=== PATIENT | male | born 1950 | race Caucasian/White ===

== ENCOUNTER → 2023-12-15 11:22 | Outpatient (REF) | payer OTHER, SELFPAY | LOC: HWRAD 11:22 | PROVIDERS: ATTENDING PHYSICIAN Internal Medicine | DX: I82.431 Acute embolism and thrombosis of right popliteal vein (principal) | CPT/HCPCS: 93971 ==

== ENCOUNTER → 2024-06-11 09:16 | Outpatient (REF) | payer MEDICARE, OTHER, SELFPAY ==
[2024-06-11 12:42] LABS: Urine Albumin Negative (Neg - Trace); Urine Bilirubin Negative (Negative); Urine Character Clear (Clear); Urine Color Yellow; Urine Glucose 3+ (Negative); Urine Ketone Negative (Negative); Urine Leukocyte Negative (Negative); Urine Nitrite Negative (Negative); Urine Occult Blood Negative (Negative); Urine Urobilinogen Negative (Neg - 1+)
[2024-06-11 13:22] LABS: Total Cholesterol 177 mg/dl (50-199); Triglyceride 40 mg/dl (10-149); Uric Acid 3.3 mg/dl (3.5-8.5); Very Low Density Lipoprotein 8 mg/dl (0-30)
[2024-06-11 13:38] LABS: HDL Cholesterol 121 mg/dl; LDL Cholesterol, Calculated 48 mg/dl
[2024-06-11 13:52] LABS: TSH 1.21 uIU/ml (0.47-4.68)
[2024-06-11 15:11] LABS: PSA, Total - Screen 1.02 ng/ml (0.0-4.0)
== END ==
LOC: HWLAB 09:16
PROVIDERS: ATTENDING PHYSICIAN Internal Medicine
DX: I10 Essential (primary) hypertension (principal); E78.2 Mixed hyperlipidemia; M10.9 Gout, unspecified; I42.9 Cardiomyopathy, unspecified; R73.01 Impaired fasting glucose; Z12.5 Encounter for screening for malignant neoplasm of prostate
CPT/HCPCS: 36415; 80061; 81003; 84443; 84550; G0103

== ENCOUNTER → 2024-06-12 07:51 | Outpatient (REF) | payer MEDICARE, OTHER, SELFPAY ==
[2024-06-12 09:39] LABS: % Basophils 0.9 % (0-2); % Eosinophils 2.4 % (0-6); % Immature Granulocytes 0.2 % (0-0.5); % Lymphocytes 21.8 % (20.5-51.1); % Monocytes 10.9 % (1.7-9.3); % Neutrophils 63.8 % (42.2-75.2); Absolute Eosinophils 0.1 10^3/uL (0-0.7); Absolute Monocytes 0.5 10^3/uL (0.1-0.6); Absolute Neutrophils 2.9 10^3/uL (1.4-6.5); Hemoglobin 15.6 g/dL (13.0-18.0); Mean Corp Hgb Conc. 35.5 g/dL (33.0-37.0); Mean Corpuscular Hgb 33.8 pg (27.0-31.0); Mean Corpuscular Volume 95.2 fL (80.0-94.0); Mean Platelet Volume 10.5 fL (7.4-10.4); Nucleated Red Blood Cells % 0 % (-); Platelet Count 115 10^3/uL (130-400); Red Blood Cell Count 4.62 10^6/uL (4.70-6.10); Red Cell Dist. Width 13.9 % (11.5-14.5); White Blood Cell Count 4.6 10^3/uL (4.8-10.8)
[2024-06-12 10:56] LABS: ALT (SGPT) 26 U/L (0-50); AST (SGOT) 38 U/L (17-59); Albumin 4.1 g/dl (3.5-5.0); Alkaline Phosphatase 89 U/L (38-126); Blood Urea Nitrogen 20 mg/dl (9-20); Calcium 9.1 mg/dl (8.4-10.2); Carbon Dioxide 22 mmol/L (22-30); Chloride 104 mmol/L (98-107); Glucose 87 mg/dl (70-99); Potassium 4.8 mmol/L (3.5-5.1); Sodium 139 mmol/L (135-145); Total Protein 6.4 g/dl (6.3-8.2); eGFR > 60.00
[2024-06-14 01:24] LABS: PSA Total 0.8 ng/mL (0.0-4.0)
== END ==
LOC: REG 07:51
PROVIDERS: ATTENDING PHYSICIAN Internal Medicine
DX: I10 Essential (primary) hypertension (principal); E78.2 Mixed hyperlipidemia; R73.01 Impaired fasting glucose; Z12.5 Encounter for screening for malignant neoplasm of prostate
CPT/HCPCS: 36415; 80053; 83036; 84153; 84154; 85025

== ENCOUNTER 2024-06-18 20:12 | Inpatient (IN) | payer MEDICARE, OTHER, SELFPAY ==
[2024-06-18] VITALS (8 sets, daily range): BP systolic 99–142; BP diastolic 66–92; BMI 27.7; BMI 27.4
[2024-06-18 17:39] LABS: % Basophils 0.5 % (0-2); % Eosinophils 0.8 % (0-6); % Immature Granulocytes 0.3 % (0-0.5); % Lymphocytes 18.9 % (20.5-51.1); % Monocytes 11.5 % (1.7-9.3); Absolute Eosinophils 0.1 10^3/uL (0-0.7); Absolute Lymphocytes 1.2 10^3/uL (1.2-3.4); Absolute Monocytes 0.8 10^3/uL (0.1-0.6); Absolute Neutrophils 4.4 10^3/uL (1.4-6.5); Hemoglobin 14.3 g/dL (13.0-18.0); Mean Corp Hgb Conc. 34.9 g/dL (33.0-37.0); Mean Corpuscular Hgb 32.9 pg (27.0-31.0); Mean Corpuscular Volume 94.5 fL (80.0-94.0); Mean Platelet Volume 9.5 fL (7.4-10.4); Nucleated Red Blood Cells % 0 % (-); Platelet Count 151 10^3/uL (130-400); Red Blood Cell Count 4.34 10^6/uL (4.70-6.10); Red Cell Dist. Width 13.8 % (11.5-14.5); White Blood Cell Count 6.5 10^3/uL (4.8-10.8)
[2024-06-18 17:42] LABS: ALT (SGPT) 21 U/L (0-50); AST (SGOT) 30 U/L (17-59); Alkaline Phosphatase 81 U/L (38-126); Blood Urea Nitrogen 25 mg/dl (9-20); Calcium 9.3 mg/dl (8.4-10.2); Carbon Dioxide 23 mmol/L (22-30); Chloride 103 mmol/L (98-107); Glucose 106 mg/dl (70-99); Potassium 4.5 mmol/L (3.5-5.1); Sodium 139 mmol/L (135-145); Total Bilirubin 0.9 mg/dl (0.2-1.3); Total Protein 6.3 g/dl (6.3-8.2); eGFR > 60.00
[2024-06-18 18:11] LABS: Lactic Acid 2.2 mmol/L (0.7-2.0)
--- NOTE | 2024-06-18 19:34 | ED.GENMED ---
History of Present Illness
General
Chief Complaint: Skin Problem
Source: patient
Exam Limitations: none
Time Seen by Provider: 06/18/24 18:58
History of Present Illness
History of Present Illness:
This is a 73 year old male that comes in with c/o left arm swelling. States that yesterday morning he noticed that his left arm was slightly swollen. Patient went to Urgent care and they put him on Antibiotics as he had on old wound of the wrist.
States that he has taken them over the past 28 hours. Today the left arm is more swollen so they thought they better come in . states that he has a history of DVT in the right leg before. Denies any fever, chills, chest pain, SOB, abd pain,
nausea, vomiting, diarrhea, headache, dizziness urinary burning
Past History
Past History
ED Past Medical History: HTN, Hypercholesterolemia and Other (Gout, DVT)
ED Past Surgical History: Cardiac (Pacemaker), Orthopedic (Jaw, Left foot surgery X 2, right knee surgery, Bilateral shoulder surgery, ) and Other (Hernia X 2)
Social History
Tobacco: Non-smoker
Alcohol: Daily (Wine 2 glasses)
Personal:
Living: with family
Employment: Employed
Review of Systems
Review of Systems
All Other Systems: ROS reviewed and negative except as documented in HPI and ROS
Constitutional: Reports no symptoms; Denies fever or chills
EENT: Reports no symptoms
Respiratory: Reports no symptoms; Denies cough or trouble breathing
Cardiac: Reports no symptoms; Denies chest pain
ABD/GI: Reports no symptoms; Denies abdominal pain, nausea, vomiting or diarrhea
: Reports no symptoms; Denies dysuria, frequency or urgency
Musculoskeletal: Reports no symptoms
Skin: Reports no symptoms
Neurological: Reports no symptoms; Denies dizzy or headache
Psychiatric: Reports no symptoms
Phy Exam
General Physical Exam
General Presentation: well appearing and no apparent distress
General age: appears stated age
General Skin: warm and dry
General Habitus: elderly
General Mental: alert
General Hydration: appears well hydrated
ENT Exam
ENT Exam: TM's normal, pharynx normal and neck supple
Eye Exam
Eye Exam: EOMI
Cardiovascular Exam
Cardiovascular Exam: regular rate/rhythm and normal peripheral pulses
Pulmonary Exam
Pulmonary Exam: lungs clear, no respiratory distress, no rales, chest non tender, no crackles, no rhonchi, no wheezing and no cough
Gastrointestinal Exam
Gastrointestinal Exam: normal bowel sounds, non tender, soft, no organomegaly, no pulsatile mass and non distended
Musculoskeletal Exam
Musculoskeletal Exam: full ROM, edema (Slight Lower leg edema +1 pitting) and other (Left arm swelling noted, nonpitting. )
Skin Exam
Skin Exam: normal color, warm/dry, no petechia and other (Contusion noted on the right lower chin and into the neck, Small healed wound on the left wrist)
Psychiatric Exam
Psychiatric Exam: normal mood/affect
Course
Orders/Labs/Results
Orders:
Orders
06/18/24 17:14
US Periph Venous UPPER Ext LT Urgent
Comment:
Reason For Exam: left arm swelling, hx of DVT's
06/18/24 17:15
Electrocardiogram (*1) Urgent
Reason for Study: Tachycardia
EKG- Treatment ONCE
06/18/24 17:21
Complete Blood Count/With Diff Urgent
Comprehensive Metabolic Panel Urgent
Lactic Acid Urgent
06/18/24 19:35
Heparin 8,500 units IV NOW STA
Nursing to Place Non Medication Order As Directed
Physician Order: PTT 6 hours after initial start of Heparin infusion
Above order entered?: Yes
06/18/24 19:42
PTT Urgent
Prothrombin Time Urgent
06/18/24 19:43
0.9% Sodium Chloride 500 ml [Nss] 500 ml IV BOLUS
06/18/24 19:45
Heparin 32673 Units/250 ml 25,000 units in 250 ml IV PER PROTOCOL
Weight to be used for heparin protocol in kilograms (kg):: 105.7
Protocol:: DVT/PE
PTT Goal Range to be used:: PTT 73 to 111 seconds
Order type:: Initial
INITIAL Infusion Dose (UNITS/KG/hr) & then follow protocol:: 18 units/kg/hr
Infusion Dose in UNITS/hr & then follow protocol (UNITS/hr):: 1,900
INFUSION RATE in mL/hr & then follow protocol (mL/hr):: 19
For DVT/PE algorithm, re-bolus for low PTT?: Yes
PTT less than or equal to 64 seconds:: Re-bolus 80 units/kg (max 10,000units). Increase by 400 units/hr
(+ 4mL/hr)
PTT 64.1 to 72.9 seconds:: Re-bolus 40 units/kg (max 5,000 units). Increase by 200 units/hr
(+ 2mL/hr)
PTT 73 to 111 seconds:: Target Range. No change in rate.
PTT 111.1 to 130.9 seconds:: Decrease rate by 200 units/hr (- 2 mL/hr)
PTT 131 to 199.9 seconds:: HOLD for 1 hr. Then decrease by 300 units/hr (- 3mL/hr)
PTT greater than or equal to 200 seconds:: HOLD for 2 hrs & Notify Provider. Then decrease by 400 units/hr
(- 4mL/hr)
Lab follow-up:: Each change, PTT q6h until 2 consecutive are therapeutic. Then
PTT daily.
06/18/24 19:48
Heparin 8,500 units IV PRN PRN
06/18/24 19:49
Heparin 4,200 units IV PRN PRN
06/18/24 20:02
Admit/Transfer Patient As Directed
Co-Sign Provider:
Level of Care: Inpatient admission
Assign to:: Telemetry
Physician / Group: Heriberto
Diagnosis: LUE DVT
Reason for Telemetry: Arrhythmia
Date to Stop Telemetry: 06/21/24
Time to Stop Telemetry: 11:00
Reason for Hospitalization: LUE DVT
Expected length of stay greater than two midnights?: Yes
ELOS- Estimated Length of Stay in days: 3
I certify the patient meets the requirements for IP care: Yes
06/18/24 20:03
PRN Pain Medication Management As Directed
May give lesser potent ordered pain med per pt: Yes
preference::
Protocol:: Medication orders for pain may be administered in a
manner that supports deferring to patient preference
when the pt is:
- Requesting an ordered lesser potent pain medication.
Least to most potent pain medications are defined
as: acetaminophen < NSAID < tramadol < opioids
(morphine, oxycodone, hydromorphone).
- Requesting a lesser dose of the same medication IF
ORDERED.
- Requesting a less intrusive route of administration
if both routes are prescribed by the provider (PO <
IV).
06/18/24 22:00
Allopurinol [Zyloprim] 300 mg PO HS
Primidone [Mysoline] 50 mg PO HS
06/18/24 22:00
Vascular Surgery Consult Routine
Consulting Provider: Cordell Ge
Was physician already notified: Yes
Reason for consult: Extensive LUE DVT
Heparin Protocol- PTT Orders As Directed
PTT per Heparin protocol: -Obtain CBC and baseline PTT - if not already collected.
-Obtain PTT 6 hours from start of infusion. Then, every 6 hours until 2 consecutive
PTT's are therapeutic. Then, PTT Daily.
-With each rate change, obtain PTT every 6 hours until 2 consecutive PTT's are
therapeutic. Then, PTT Daily.
Notify MD As Directed
Notify physician if: PTT is greater than or equal to 200.
06/18/24 23:00
Atorvastatin [Lipitor] 20 mg PO HS
06/19/24 08:00
Carvedilol [Coreg] 12.5 mg PO BID
Dapagliflozin [Farxiga] 10 mg PO DAILY
Famotidine [Pepcid] 20 mg PO BID
Sacubitril 49/Valsartan 51 [Entresto 49 mg/51 mg] 1 tab PO BID
06/20/24 06:00
Complete Blood Count/No Diff Q2D
Comment: notify provider: Platelet count < 130,000 or decrease by 50% from baseline
06/21/24 11:00
DC Protocol for Telemetry ONCE
06/22/24 06:00
Complete Blood Count/No Diff Q2D
Comment: notify provider: Platelet count < 130,000 or decrease by 50% from baseline
06/24/24 06:00
Complete Blood Count/No Diff Q2D
Comment: notify provider: Platelet count < 130,000 or decrease by 50% from baseline
06/26/24 06:00
Complete Blood Count/No Diff Q2D
Comment: notify provider: Platelet count < 130,000 or decrease by 50% from baseline
06/28/24 06:00
Complete Blood Count/No Diff Q2D
Comment: notify provider: Platelet count < 130,000 or decrease by 50% from baseline
06/30/24 06:00
Complete Blood Count/No Diff Q2D
Comment: notify provider: Platelet count < 130,000 or decrease by 50% from baseline
07/02/24 06:00
Complete Blood Count/No Diff Q2D
Comment: notify provider: Platelet count < 130,000 or decrease by 50% from baseline
07/04/24 06:00
Complete Blood Count/No Diff Q2D
Comment: notify provider: Platelet count < 130,000 or decrease by 50% from baseline
Abnormal Lab Results
06/18/24
17:21
RBC 4.34 L 10^6/uL
(4.70-6.10)
MCV 94.5 H fL
(80.0-94.0)
MCH 32.9 H pg
(27.0-31.0)
Absolute Monos (auto) 0.8 H 10^3/uL
(0.1-0.6)
Lymphocytes % 18.9 L %
(20.5-51.1)
Monocytes % 11.5 H %
(1.7-9.3)
BUN 25 H mg/dl
(9-20)
Glucose 106 H mg/dl
(70-99)
Lactic Acid 2.2 H mmol/L
(0.7-2.0)
06/18/24 17:21
06/18/24 17:21
Anemia, Dehydration. Hyperglycemia. Lactic acid elevation
Vital Signs
Initial and Last Documented VS:
Initial Vital Signs
Temp Pulse Resp BP Pulse Ox
97.7 F 103 18 99/66 96
06/18/24 17:11 06/18/24 17:11 06/18/24 17:11 06/18/24 17:11 06/18/24 17:11
Last Documented Vital Signs
Temp Pulse Resp BP Pulse Ox
98.2 F 88 18 142/86 97
06/18/24 23:00 06/18/24 23:00 06/18/24 23:00 06/18/24 23:00 06/18/24 23:00
MDM/Problems Addressed
Differential Diagnosis Includes:
DVT left arm,
MDM/Problems Addressed:
This is a 73 year old male that comes in with c/o left arm swelling. States that this started yesterday and he went to and they place him on antibiotic. Patient states he has take this over the past 28 hours but today the swelling was worse.
States that he has had a DVT in the left in the past.
Will check labs and get US.
Explained to patient that he has significant DVT of the left arm. Will admit patient and place on Heparin. Hospitalist notified.
Chronic conditions affecting care:
Prior DVT
Acute Exacerbation and/or Progression of Chronic Illness:
Prior DVT
*Radiology
Radiology exam reviewed: radiology read reviewed (US-Extensive occlusive Thrombus involving the left jugular, subclavian, axillary, and basilic veins, as described. )
*Pulse Oximetry
Patient hypoxic: no
*EKG
Interpreted by ED Provider?: NA
Rate: EKG- N/A
*Panel Builder Interpretation
Rate: Panel Builder- N/A
*Critical Care Note
Total Time (30-74mins, 75-104mins- exclusive of procedures): Not Applicable
ED Attending Note
-
Portions of this chart may have been created with voice recognition software.� Occasional wrong word or��sound alike� substitutions may have occurred due to the inherent limitations of voice recognition software.
Discharge Plan
Departure
Patient Disposition: Admit
Date of Disposition: 06/18/24
Time of Disposition: 19:47
Admit to: Med/Surg
Presentation/result/management discussed w/ accepting MD/DO: Hospitalist
Patient with high blood pressure during this ER visit?: No
Condition: Good
Covid-19: Not Applicable
Discharge Problem:
Deep vein thrombosis (DVT) of left upper extremity
Interventions
Interventions:
*Risk Screen - Suicide Last Done: 06/18/24 19:29
*General Assessment Last Done: 06/18/24 19:29
*Neglect/Abuse Screening Last Done: 06/18/24 19:29
*ED COVID-19 Vaccine History Last Done: 06/18/24 19:29
*Nursing Disposition Last Done: 06/18/24 21:47
ED-Skin Assessment Last Done: 06/18/24 19:45
Discharge Date and Time
Discharge Date/Time: 06/18/24 21:47
[2024-06-18 19:59] LABS: APTT 30.2 Sec (23.4-35.0); INR 1.06; PT 13.7 Sec (11.4-14.6)
--- NOTE | 2024-06-18 20:06 | HPS.HSE ---
Family Physician
-
Family Physician: Urbano Bell
Chief Complaint
-
LUE swelling
History of Present Illness
Patient is a 73y M with PMH significant for hypertension and CHF who presents to ED complaining of LUE swelling x 2 days. Patient states that he woke yesterday AM with swelling and 'tightness' of the LUE from the shoulder to the fingers. He
went to an Urgent Care for evaluation and was placed on abx for suspected cellulitis. His symptoms did not improve and in fact worsened over the past 24 hours. Patient presented to the ED for further evaluation and treatment.
US done in the ED reveals extensive thrombus in the LUE.
Patient was previously diagnosed with RLE DVT in September 2023. He notes that this occurred following a drive to [place].
He was treated with Eliquis x 3 months and this was then discontinued. Repeat US done in December 2023 showed improvement - but not resolution of - RLE thrombus.
Medical History
Past Medical History
Past Medical History: Reports Other
Additional Past Medical History:
Hypertension
Chronic HFmrEF
RLE DVT (09/2023)
LBBB
Sleep Apnea
Gout
GERD
Past Surgical History: Reports Other
Additional Past Surgical History:
PPM Placement
Bilateral Rotator Cuff Repairs
Left Foot Surgery x 2
Bilateral Inguinal Herniorrhaphies
ORIF Jaw
Right Knee Arthroscopy
Social History
Tobacco: Non-smoker
Alcohol: Daily (2 glasses wine daily)
Drug: None
Personal:
Living: With Family
Family History
Family History: Other (Mother: CAD Father: Head and Neck Cancer)
Allergies / Home Medications
Allergies reflects when Allergies were last updated in [employer].
Home Medications with original date entered in [employer]
Allergy/Medication List:
Allergies
Allergy/AdvReac Type Severity Reaction Status Date / Time
No Known Allergies Allergy Verified 01/22/22 14:58
Home Medications
allopurinol 300 mg tablet 300 mg PO HS 02/28/21
cholecalciferol (vitamin D3) 50 mcg (2,000 unit) tablet 2,000 units PO HS 02/28/21
famotidine 20 mg tablet (Acid [employer] Specialist (famotidine)) 20 mg PO BID 02/28/21
ferrous sulfate 325 mg (65 mg iron) tablet (FeroSul) 325 mg PO HS 02/28/21
acetaminophen 500 mg tablet (Tylenol Extra Strength) 1,000 mg PO Q6HPRN PRN mild pain 06/18/24
carvedilol 12.5 mg tablet 12.5 mg PO BID 06/18/24
cephalexin 500 mg capsule 500 mg PO QID 06/18/24
dapagliflozin propanediol 10 mg tablet (Farxiga) 10 mg PO DAILY 06/18/24
primidone 50 mg tablet 50 mg PO HS 06/18/24
sacubitril 49 mg-valsartan 51 mg tablet (Entresto) 1 tab PO BID 06/18/24
simvastatin 40 mg tablet 40 mg PO HS 06/18/24
therapeutic multivitamin 1 tab PO HS 06/18/24
Review of Systems
-
History Source: Patient
A 12 point ROS was completed and negative except as noted: Yes
Constitutional: Denies Fever or Chills
Respiratory: Denies Cough or Trouble Breathing
Cardiac: Denies Chest Pain or Palpitations
Abdomen/GI: Denies Abdominal Pain, Nausea, Vomiting or Diarrhea
: Denies Dysuria or Frequency
Musculoskeletal: Reports Muscle Stiffness and Edema
Neurological: Denies Dizzy or Headache
Psych: Denies Depression or Anxiety
Physical Exam
Vital Signs
Vital Signs
Temp Pulse Resp BP Pulse Ox
98.2 F 88 18 117/83 98
06/18/24 19:33 06/18/24 20:03 06/18/24 19:33 10/18/24 20:03 06/18/24 20:03
Physical Exam
General: Other (73y M in no acute distress)
HEENT: Moist mucous membranes, PERRLA and Other (Ecchymosis over the chin from recent fall (one week ago).)
Respiratory: Clear; No Wheezes, Rales or Rhonchi
Cardiac: S1/S2 and Regular Rhythm; No Murmur
GI: Soft, Non Tender, Non Distended and Normal Bowel Sounds
Musculoskeletal: No Clubbing, No Cyanosis and Other (2+ edema of the LUE. Neurovascularly intact. )
Neuro: AO x 3
Laboratory Results
-
06/18/24 17:21
06/18/24 17:21
Laboratory Results
APTT Cancelled 06/18/24 19:42
Lactic Acid 2.2 mmol/L (0.7-2.0) H 06/18/24 17:21
Total Bilirubin 0.9 mg/dl (0.2-1.3) 06/18/24 17:21
AST 30 U/L (17-59) 06/18/24 17:21
ALT 21 U/L (0-50) 06/18/24 17:21
Alkaline Phosphatase 81 U/L (38-126) 06/18/24 17:21
Impression/Plan
-
A/P: Patient is a 73y M with PMH significant for HTN, CHF and prior DVT who presents to ED complaining of LUE swelling for the past 2 days.
LUE DVT
- Admit for further evaluation and treatment.
- US shows extensive DVT throughout the LUE including basilic, axillary, subclavian and IJ.
- Normal strength, ROM, pulses, etc.
- IV Heparin started in the ED.
- With second thrombus in last year - patient will likely now require lifelong anticoagulation.
- Will ask Vascular Surgery to evaluate given extensive nature of thrombosis.
- Hematology evaluation.
Benign Hypertension
- Stable. Continue current meds with holding parameters.
Chronic HFmrEF
- Stable. No evidence of volume overload.
- Continue current med regimen including Entresto.
- Follow I/Os, daily weights, etc.
DVT Prophylaxis: On IV Heparin
Code Status: Full
[2024-06-18] MEDS: HEPARIN 25000 UNITS/250 ML IV (20:08)
[2024-06-18] MEDS: HEPARIN 8500 UNITS IV (20:09)
[2024-06-18] MEDS: NSS 500 IV (20:18)
[2024-06-18] MEDS: LIPITOR 20 MG PO (22:24)
[2024-06-18] MEDS: MYSOLINE 50 MG PO (22:24)
[2024-06-18] MEDS: ZYLOPRIM 300 MG PO (22:24)
--- NOTE | 2024-06-18 23:28 | PTCARENOTE ---
Received pt from ED @ 0770. Pt AAOx3, VSS, ambulatory in room. Heparin drip infusing. Oriented to room, call garcia and plan of care.
[2024-06-19 02:13] LABS: APTT > 200 Sec (23.4-35.0)
[2024-06-19 03:00] VITALS: BP 148/87
[2024-06-19 06:00] VITALS: BMI 27.4
[2024-06-19 07:05] VITALS: BP 131/83
--- NOTE | 2024-06-19 08:43 | W.PN.HOSP.TC ---
Today's Communication/Plan
-
Continue current care
Assessment / Plan
Assessment / Plan
Gen-AAOx3, NAD
HEENT-NC, AT, anicteric, clear oral mm
Neck-supple
CV-reg, no M, +S1/S2
Lungs-clear B/L
Abd-soft, NT, ND
Ext-left upper extremity edema with Panda wrap
Musculoskeletal-no cyanosis, clubbing
Skin-warm and dry
Neuro-grossly non-focal
Psych-calm, cooperative
Extensive left upper extremity acute DVT -noted on ultrasound. Suspect etiology of DVT due to pacemaker in the left upper chest with suspected lead thrombosis.
Vascular surgery consulted. Continue IV heparin. Anticipating vascular intervention tomorrow.
Essential hypertension -stable.
Chronic heart failure midrange EF -stable.
Permanent pacemaker -placed in December 2023.
ALFA -currently getting evaluated for possible Inspira.
Gout
GERD
Hyperlipidemia -on simvastatin.
History of right lower extremity DVT -September 2023.
Full code
Updated at the bedside.
Anticipated Discharge: > 48 hours
Subjective/Interval History
-
Date of Service: June 19, 2024
Patient seen and examined. No complaints.
Objective Data
-
Labs:
Laboratory Results
06/19/24 06/19/24 06/19/24
01:36 07:43 10:20
APTT > 200 H* Pending
Sodium Pending
Potassium Pending
Chloride Pending
Carbon Dioxide Pending
BUN Pending
Creatinine Pending
Glucose Pending
Calcium Pending
Vital Signs:
Vital Signs
Temp Pulse Resp BP Pulse Ox
98.8 F 90 18 131/83 98
06/19/24 07:05 06/19/24 07:05 06/19/24 07:05 06/19/24 07:05 06/19/24 07:05
I&O
06/18/24 06/19/24 06/20/24
06:59 06:59 06:59
Intake Total 180 / 180
Balance 180 / 180
Review of Systems
-
History Source: Patient
All other systems: Reviewed and negative
--- NOTE | 2024-06-19 08:46 | CON.VAS ---
Consultation
Consultation Request
Date/Time Consultation Performed: 0800 06/19/2024
Requesting Provider: Hospitalist
Performing Provider: Estela Buchanan NP-C for Cordell Ge MD
Reason for Consultation: LUE DVT/edema
Medical History
-
Chief Complaint: LUE edema
History of Present Illness:
This is a 73 year old male with significant past medical history for recent pacemaker placement in April of 2024 at outside hospital and RLE DVT in September of 2023, reports to ED with roughly 48 hours of worsening LUE edema. Patient endorses that
he first noticed LUE edema on (06/17/24), he was seen at urgent care where he was suspected to have cellulitis and was prescribed PO antibiotics. However, when he noticed edema worsening he presented to our ED. He denies prolonged work or
over use of arms over head, actually often avoids because of pacemaker. He offers no other complaints. Denies nausea, vomiting, fever, chills, left hand pain, left hand paresthesia, or left hand coolness. He reports he was on anticoagulation
following DVT in September but stopped after the three month treatment.
Past Medical History
Past Medical History: CHF (Chronic HFmrEF), HTN and Other (RLE DVT (09/2023), sleep apnea, gout, GERD)
Past Surgical History: Cardiac (PPM placement left side), Orthopedic (Bilateral Rotator Cuff Repairs Left Foot Surgery x 2, Right Knee Arthroscopy) and Other (ORIF Jaw, Bilateral Inguinal Herniorrhaphies)
Social History
Tobacco: Non-Smoker
Alcohol: Occasional
Allergies / Home Medications
Allergy/AdvReac Type Severity Reaction Status Date / Time
No Known Allergies Allergy Verified 01/22/22 14:58
�Medication �Instructions �Recorded �Confirmed �Type
allopurinol 300 mg tablet 300 mg PO HS 02/28/21 06/18/24 History
cholecalciferol (vitamin D3) 50 2,000 units PO HS 02/28/21 06/18/24 History
mcg (2,000 unit) tablet
famotidine 20 mg tablet (Acid 20 mg PO BID 02/28/21 06/18/24 History
Land Resource Specialist (famotidine))
ferrous sulfate 325 mg (65 mg 325 mg PO HS 02/28/21 06/18/24 History
iron) tablet (FeroSul)
acetaminophen 500 mg tablet 1,000 mg PO Q6HPRN PRN mild pain 06/18/24 06/18/24 History
(Tylenol Extra Strength)
carvedilol 12.5 mg tablet 12.5 mg PO BID 06/18/24 06/18/24 History
cephalexin 500 mg capsule 500 mg PO QID 06/18/24 06/18/24 History
dapagliflozin propanediol 10 mg 10 mg PO DAILY 06/18/24 06/18/24 History
tablet (Farxiga)
primidone 50 mg tablet 50 mg PO HS 06/18/24 06/18/24 History
sacubitril 49 mg-valsartan 51 mg 1 tab PO BID 06/18/24 06/18/24 History
tablet (Entresto)
simvastatin 40 mg tablet 40 mg PO HS 06/18/24 06/18/24 History
therapeutic multivitamin 1 tab PO HS 06/18/24 06/18/24 History
Review of Systems
-
History Source: Patient
Constitutional: Reports No Symptoms
EENT: Reports No Symptoms
Respiratory: Reports No Symptoms
Cardiac: Reports No Symptoms
Abdomen/GI: Reports No Symptoms
: Reports No Symptoms
Musculoskeletal: Reports Edema (LUE for roughly 48 hours)
Skin: Reports No Symptoms
Neurological: Reports No Symptoms
Endocrine: Reports No Symptoms
Physical Exam
Vital Signs
Temp Pulse Resp BP Pulse Ox
98.8 F 90 18 131/83 98
06/19/24 07:05 06/19/24 07:05 06/19/24 07:05 06/19/24 07:05 06/19/24 07:05
Lab Results
06/18/24 17:21
Physical Exam
General: No Apparent Distress and Comfortable
HEENT: Normocephalic and Anicteric
Respiratory: Non Labored Respirations
Cardiac: Negative JVD
GI: Soft, Non Tender and Non Distended
Musculoskeletal: Edema (+2 LUE edema, palpable left radial pulse)
Skin: Warm and Dry
Neuro: AO x 3
Assessment / Plan
-
Assessment: 73 year old male with left upper extremity with acute occlusive DVT at jugular, subclavian, axillary, and basilic vein and left pacemaker
Plan:
Acute DVT at jugular, subclavian, axillary, and basilic vein likely brought on by pacemaker leads contributing to narrowing of vein. Pacemaker placed at an outside hospital. Could consider lysis procedure but would be challenging, given venogram
and any intervention such as balloon angioplasty or stenting will be prohibited by pacemaker leads. For now recommend compression and elevation, will tentatively place on the OR schedule for tomorrow for possible lysis. Will re-evaluate tomorrow AM
and If swelling greatly improves will likely suggest medical/conservative management and cancel OR.
Agree with anticoagulation
Can consider outpatient hematology evaluation
I performed this shared service with the attending Dr. Ge. I evaluated the patient [id number] and have entered clinical documentation as shown in the encounter note. I performed the following component(s):�history and physical exam. Note
that medical decision making is not final until attested by vascular attending.
--- NOTE | 2024-06-19 09:52 | CON.ONC ---
Impression
Impression
- Acute LUE DVT
- hx of RLE DVT- provoked
Plan
Plan
- pt experienced first VTE event in September 2023 with RLE DVT after long car travel. He completed 3 month course of Eliquis at that time for provoked VTE. He now presents with extensive LUE DVT originating at site of pacemaker leads. Despite fall
last week hitting right chin/side of body, denies left sided trauma, no PIV in left arm recently.
- denies family hx of VTE. Cancer screening up to date, no recent illness or chronic inflammatory states. I do not feel hereditary thrombophilia testing indicated however will send APLA panel with now two VTE events in < 1 year with low to
intermediate risk provoking factors.
- on heparin gtt. Vascular surgery considering intervention tomorrow.
- transition to DOAC on discharge with appropriate loading dose. Reviewed with pt potential need for indefinite AC. although you could argue both events were provoked, the fact that he has now had 2 events, low risk provoking factor for RLE DVT,
and if we assume pacer provoked this event then this factor is not reversible and he could be at risk of recurrence if pacer remains in place which it seems has helped pt with central sleep apnea, BBB. He is agreeable to this. recommend at least 3
months full dose AC then could consider reduce dose for ppx if clot resolved. hematology follow up to review this in more detail in 3 months can be considered.
Patient History
History of Present Illness
Tyrese is a 73y M with PMH significant for hypertension, CHF, LBBB s/p pacemaker 12/2023, central and obstructive ALFA, travel provoked DVT (09/2023) who presented to ED 06/18 complaining of LUE swelling x 2 days. He initially went to an Urgent Care
and was placed on abx for suspected cellulitis. His swelling and pain continued to worsen prompting him to come to ED. UE US showed 'Echogenicity is associated with lack of internal blood flow and lack of compression where accessible involving the
left jugular, subclavian, axillary, and basilic vein along its entire course in the proximal upper extremity, as well as extending into the proximal forearm, consistent with occlusive thrombus.' Clot seems to originate near site of pacemaker leads
causing vascular narrowing. Vascular consulted and considering lysis procedure 06/20 however will reassess. He was started on heparin gtt and admitted for further management.
Medical hx notable for RLE DVT in September 2023 in the setting of prolonged drive to [place]. He was treated with Eliquis x 3 months. Repeat US done in December 2023 showed improvement in RLE thrombus with residual non-occlusive thrombus within popliteal
vein, peroneal and posterior tibial veins. Denies family hx of VTE. Cancer screening up to date. He is non-smoker. He lives active lifestyle. He notes fall ~ 1.5 weaks ago, tripped over hose and chin landed on outside furniture. Denies trauma to
pacer or left chest/arm. Denies hx of recurrent falls.
Past-Medical/Surgical History
Past Medical History
Past Medical History: Reports Other
Additional Past Medical History:
Hypertension
Chronic HFmrEF
RLE DVT (09/2023)
LBBB
Sleep Apnea
Gout
GERD
Past Surgical History: Reports Other
Additional Past Surgical History:
PPM Placement
Bilateral Rotator Cuff Repairs
Left Foot Surgery x 2
Bilateral Inguinal Herniorrhaphies
ORIF Jaw
Right Knee Arthroscopy
Patient Medication
�Medication �Instructions �Recorded �Confirmed �Last Taken �Type
allopurinol 300 mg tablet 300 mg PO HS 02/28/21 06/18/24 06/17/24 History
cholecalciferol (vitamin D3) 50 2,000 units PO HS 02/28/21 06/18/24 06/17/24 History
mcg (2,000 unit) tablet
famotidine 20 mg tablet (Acid 20 mg PO BID 02/28/21 06/18/24 06/18/24 History
Quality Control Assessor (famotidine))
ferrous sulfate 325 mg (65 mg 325 mg PO HS 02/28/21 06/18/24 06/17/24 History
iron) tablet (FeroSul)
acetaminophen 500 mg tablet 1,000 mg PO Q6HPRN PRN mild pain 06/18/24 06/18/24 06/18/24 History
(Tylenol Extra Strength)
carvedilol 12.5 mg tablet 12.5 mg PO BID 06/18/24 06/18/24 06/18/24 History
cephalexin 500 mg capsule 500 mg PO QID 06/18/24 06/18/24 06/18/24 History
dapagliflozin propanediol 10 mg 10 mg PO DAILY 06/18/24 06/18/24 06/18/24 History
tablet (Farxiga)
primidone 50 mg tablet 50 mg PO HS 06/18/24 06/18/24 06/17/24 History
sacubitril 49 mg-valsartan 51 mg 1 tab PO BID 06/18/24 06/18/24 06/18/24 History
tablet (Entresto)
simvastatin 40 mg tablet 40 mg PO HS 06/18/24 06/18/24 06/17/24 History
therapeutic multivitamin 1 tab PO HS 06/18/24 06/18/24 06/17/24 History
Active Medications
Generic Name Dose Route Start Last Admin
Trade Name Freq PRN Reason Stop Dose Admin
Acetaminophen 650 mg 06/18/24 22:00
Acetaminophen 325 Mg Tablet PO 07/16/24 21:59
Q4HPRN PRN
Mild Pain / Temp > 101
Allopurinol 300 mg 06/18/24 22:00 06/18/24 22:24
Allopurinol 300 Mg Tablet PO 07/16/24 21:59 300 mg
HS ALEX Administration
Atorvastatin Calcium 20 mg 06/18/24 23:00 06/18/24 22:24
Atorvastatin (Lipitor) 20 Mg Tablet PO 07/16/24 22:59 20 mg
HS ALEX Administration
Carvedilol 12.5 mg 06/19/24 08:00
Carvedilol 12.5 Mg Tablet PO 07/17/24 07:59
BID ALEX
Dapagliflozin 10 mg 06/19/24 08:00
Dapagliflozin (Farxiga) 10 Mg Tablet PO 07/17/24 07:59
DAILY ALEX
Famotidine 20 mg 06/19/24 08:00
Famotidine 20 Mg Tablet PO 07/17/24 07:59
BID ALEX
Heparin Sodium 8,500 units 06/18/24 19:48
Heparin 80 Units/Kg Rebolus-Do Not Discard IV 07/16/24 19:47
PRN PRN
PTT < OR = 64 seconds
Heparin Sodium 4,200 units 06/18/24 19:49
Heparin 40 Units/Kg Rebolus-Do Not Discard IV 07/16/24 19:48
PRN PRN
PTT = 64.1 to 72.9 seconds
Heparin Sodium 25,000 units in 250 mls @ 0 mls/hr 06/18/24 19:45 06/18/24 20:08
Heparin 07192 Units/250 Ml IV 250 mls
PER PROTOCOL ALEX Administration
Protocol
Per Protocol
Primidone 50 mg 06/18/24 22:00 06/18/24 22:24
Primidone 50 Mg Tablet PO 07/16/24 21:59 50 mg
HS ALEX Administration
Sacubitril/Valsartan 1 tab 06/19/24 08:00
Sacubitril 49 Mg/Valsartan 51 Mg (Entresto) Tab PO 07/17/24 07:59
BID ALEX
Sodium Chloride 0 flush 06/18/24 23:00
Sodium Chloride 0.9% (Flush) Syringe IV 07/16/24 22:59
PER PROTOCOL ALEX
Review of Systems
-
History Source: Patient
Respiratory: Denies Cough or Trouble Breathing
Cardiac: Denies Chest Pain
GI: Denies Bloody Stools or Black Stools
: Denies Bleeding
Musculoskeletal: Reports Edema
Neuro: Denies Dizzy
Hematologic/Lymphatic: Reports Blood Clots; Denies Bleeding or Bruising
Physical Exam
-
General: Well Developed, Well Nourished and No Apparent Distress
HEENT: Negative Jaundice
Cardiology: Normal Sinus Rhythm
Pulmonary: Clear; Negative Wheezes
GI: Soft; Negative Distended
Musculoskeletal: Edema. Left Upper Extrem (PERI bandage for compression); Negative Cyanosis, Edema, Right Lower Extrem or Edema, Left Lower Extrem
Neurology: Non Focal; Negative No Lateralizing Symptoms
Labs
Lab Results
WBC 6.5 10^3/uL (4.8-10.8) 06/18/24 17:21
RBC 4.34 10^6/uL (4.70-6.10) L 06/18/24 17:21
Hgb 14.3 g/dL (13.0-18.0) 06/18/24 17:21
Hct 41.0 % (39.0-52.0) 06/18/24 17:21
MCV 94.5 fL (80.0-94.0) H 06/18/24 17:21
MCH 32.9 pg (27.0-31.0) H 06/18/24 17:21
MCHC 34.9 g/dL (33.0-37.0) 06/18/24 17:21
RDW 13.8 % (11.5-14.5) 06/18/24 17:21
Plt Count 151 10^3/uL (130-400) D 06/18/24 17:21
MPV 9.5 fL (7.4-10.4) 06/18/24 17:21
Abs Immat Gran (auto) 0.0 10^3/uL (0-0.05) 06/18/24 17:21
Absolute Neuts (auto) 4.4 10^3/uL (1.4-6.5) 06/18/24 17:21
Absolute Lymphs (auto) 1.2 10^3/uL (1.2-3.4) 06/18/24 17:21
Absolute Monos (auto) 0.8 10^3/uL (0.1-0.6) H 06/18/24 17:21
Absolute Eos (auto) 0.1 10^3/uL (0-0.7) 06/18/24 17:21
Absolute Basos (auto) 0.0 10^3/uL (0-0.2) 06/18/24 17:21
Immature Gran % 0.3 % (0-0.5) 06/18/24 17:21
Neutrophils % 68.0 % (42.2-75.2) 06/18/24 17:21
Lymphocytes % 18.9 % (20.5-51.1) L 06/18/24 17:21
Monocytes % 11.5 % (1.7-9.3) H 06/18/24 17:21
Eosinophils % 0.8 % (0-6) 06/18/24 17:21
Basophils % 0.5 % (0-2) 06/18/24 17:21
Creatinine Cancelled 06/19/24 07:43
Vital Signs
Vital Signs
Temp Pulse Resp BP Pulse Ox
98.8 F 90 18 131/83 98
06/19/24 07:05 06/19/24 07:05 06/19/24 07:05 06/19/24 07:05 06/19/24 07:05
[2024-06-19] MEDS: FARXIGA 10 MG PO (10:04)
[2024-06-19] MEDS: COREG 12.5 MG PO ×2 (10:04→19:52)
[2024-06-19] MEDS: ENTRESTO 49 MG/51 MG 1 TAB PO ×2 (10:04→19:53)
[2024-06-19] MEDS: PEPCID 20 MG PO ×2 (10:04→19:52)
[2024-06-19 10:54] LABS: APTT 104.3 Sec (23.4-35.0)
[2024-06-19 11:15] VITALS: BP 109/70
--- NOTE | 2024-06-19 12:04 | CM ---
Initial assessment was completed with pt at bedside.
Pt is a 73yr old male admitted for LUE DVT
At baseline, pt lives with his in a 1 story home with 2 neal from the front and 3 from the back.
Pt is indep at home, driving, and indep with mobility and ADLs.
Pt has a RW from previous problem, but does not use it.
Pt has no hx of SNF or VN.
PCP; [facility]
Pharm; [facility]
PLAN; home with no needs identified
[2024-06-19 12:13] LABS: Blood Urea Nitrogen 21 mg/dl (9-20); Calcium 9.3 mg/dl (8.4-10.2); Carbon Dioxide 24 mmol/L (22-30); Chloride 102 mmol/L (98-107); Estimated Creatinine Clearance 92 ml/min; Glucose 159 mg/dl (70-99); Potassium 4.7 mmol/L (3.5-5.1); Sodium 137 mmol/L (135-145); eGFR > 60.00
[2024-06-19] MEDS: HEPARIN 25000 UNITS/250 ML IV (14:43)
[2024-06-19 15:28] VITALS: BP 123/71
[2024-06-19 18:06] LABS: APTT 42.2 Sec (23.4-35.0)
[2024-06-19] MEDS: HEPARIN 8500 UNITS IV (18:20)
[2024-06-19 19:00] VITALS: BP 115/79
[2024-06-19] MEDS: MYSOLINE 50 MG PO (21:39)
[2024-06-19] MEDS: LIPITOR 20 MG PO (21:39)
[2024-06-19] MEDS: ZYLOPRIM 300 MG PO (21:39)
[2024-06-19 23:00] VITALS: BP 116/81
[2024-06-20 01:53] LABS: APTT > 200 Sec (23.4-35.0)
[2024-06-20 03:00] VITALS: BP 137/84
[2024-06-20 06:00] VITALS: BMI 27.1
[2024-06-20 07:00] VITALS: BP 124/86
[2024-06-20] MEDS: FARXIGA 10 MG PO (08:34)
[2024-06-20] MEDS: COREG 12.5 MG PO (08:34)
[2024-06-20] MEDS: PEPCID 20 MG PO (08:35)
[2024-06-20] MEDS: ENTRESTO 49 MG/51 MG 1 TAB PO (08:36)
[2024-06-20] MEDS: HEPARIN 25000 UNITS/250 ML IV (10:04)
[2024-06-20 10:20] LABS: INR 1.04; PT 13.4 Sec (11.4-14.6)
[2024-06-20 10:21] LABS: APTT 81.3 Sec (23.4-35.0); APTT 82.5 Sec (23.4-35.0)
[2024-06-20 10:25] LABS: Hematocrit 39.1 % (39.0-52.0); Hemoglobin 13.6 g/dL (13.0-18.0); Mean Corp Hgb Conc. 34.8 g/dL (33.0-37.0); Mean Corpuscular Hgb 33.2 pg (27.0-31.0); Mean Corpuscular Volume 95.4 fL (80.0-94.0); Mean Platelet Volume 9.9 fL (7.4-10.4); Platelet Count 156 10^3/uL (130-400); Red Cell Dist. Width 13.9 % (11.5-14.5); White Blood Cell Count 4.7 10^3/uL (4.8-10.8)
[2024-06-20 10:53] LABS: INR 1.06; PT 13.6 Sec (11.4-14.6)
--- NOTE | 2024-06-20 10:54 | W.PN.HOSP.TC ---
Today's Communication/Plan
-
Discharge
Assessment / Plan
Assessment / Plan
Gen-AAOx3, NAD
HEENT-NC, AT, anicteric, clear oral mm
Neck-supple
CV-reg, no M, +S1/S2
Lungs-clear B/L
Abd-soft, NT, ND
Ext-left upper extremity edema with Panda wrap
Musculoskeletal-no cyanosis, clubbing
Skin-warm and dry
Neuro-grossly non-focal
Psych-calm, cooperative
Extensive left upper extremity acute DVT -noted on ultrasound. Suspect etiology of DVT due to pacemaker in the left upper chest with suspected lead thrombosis.
I spoke with vascular surgery today, recommendation is nonoperative. Convert to Eliquis and discharged today. Continue compression to the arm to help reduce swelling. Follow-up in the office. Follow-up with hematology as well as PCP.
Essential hypertension -stable.
Chronic heart failure midrange EF -stable.
Permanent pacemaker -placed in December 2023.
ALFA -currently getting evaluated for possible Inspira.
Gout
GERD
Hyperlipidemia -on simvastatin.
History of right lower extremity DVT -September 2023.
Full code
Dispo -stable for discharge later today. Start Eliquis prior to discharge. Discussed with nursing. Outpatient follow-up.
Updated at the bedside.
35 minutes spent in discharge process.
Anticipated Discharge: Today
Subjective/Interval History
-
Date of Service: June 20, 2024
Patient seen and examined. Feels better with less swelling of the arm.
Objective Data
-
Labs:
Laboratory Results
06/20/24 06/20/24 06/20/24
00:55 09:59 10:00
WBC 4.7 L
Hgb 13.6
Hct 39.1
Plt Count 156
PT 13.4
INR 1.04
APTT > 200 H* 82.5 H
06/20/24 06/20/24 06/20/24
10:00 10:33 16:00
WBC
Hgb
Hct
Plt Count
PT Pending
INR Pending
APTT 81.3 H Pending Pending
Vital Signs:
Vital Signs
Temp Pulse Resp BP Pulse Ox
98.0 F 83 18 124/86 94
06/20/24 07:00 06/20/24 08:36 06/20/24 07:00 06/20/24 08:36 06/20/24 07:00
I&O
06/19/24 06/20/24 06/21/24
06:59 06:59 06:59
Intake Total 180 / 180 960 / 960
Balance 180 / 180 960 / 960
Review of Systems
-
History Source: Patient
All other systems: Reviewed and negative
[2024-06-20 10:56] LABS: APTT 69.4 Sec (23.4-35.0)
[2024-06-20 11:00] VITALS: BP 110/77
--- NOTE | 2024-06-20 11:02 | W.DS.TRANS ---
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
-
Discharge Instructions:
Discharge Diagnosis/Procedures Left upper extremity deep vein thrombosis
Diet Regular
Activity As tolerated
Driving Restrictions As prior to admission
Bathing Restrictions None
Instructions:
Stand-Alone Forms:
Changes to Home Medications: No
Discharge Medications:
DC Medications w/original date entered in [employer]
allopurinol 300 mg tablet 300 mg PO HS Gout 02/28/21
cholecalciferol (vitamin D3) 50 mcg (2,000 unit) tablet 2,000 units PO HS Supplement 02/28/21
famotidine 20 mg tablet (Acid Director Of Dietary (famotidine)) 20 mg PO BID Gastrointestinal Issue 02/28/21
ferrous sulfate 325 mg (65 mg iron) tablet (FeroSul) 325 mg PO HS Supplement 02/28/21
acetaminophen 500 mg tablet (Tylenol Extra Strength) 1,000 mg PO Q6HPRN PRN mild pain 06/18/24
carvedilol 12.5 mg tablet 12.5 mg PO BID Heart Failure 06/18/24
dapagliflozin propanediol 10 mg tablet (Farxiga) 10 mg PO DAILY Heart Failure 06/18/24
primidone 50 mg tablet 50 mg PO HS Neurological Condition 06/18/24
sacubitril 49 mg-valsartan 51 mg tablet (Entresto) 1 tab PO BID Heart Failure 06/18/24
simvastatin 40 mg tablet 40 mg PO HS High Cholesterol 06/18/24
therapeutic multivitamin 1 tab PO HS Supplement 06/18/24
apixaban 5 mg (74 tabs) tablets in a dose pack (Eliquis DVT-PE Treat 30D Start) See Rx Instructions PO .COMPLEX #74 ea 06/20/24
Home Medication Changes
Pending Results: No
[2024-06-20] MEDS: ELIQUIS 10 MG PO (11:15)
--- NOTE | 2024-06-20 11:17 | W.PN.VS ---
Today's Communication / Plan
-
nba wrap
oral anticoagulation
follow up in office
Assessment/Plan
-
DVT LUE
- cont nba
- oral anticoagulaation
- ok for discharge
- no lysis at this time
- follow up in office
Subjective Data
-
Date of Service: June 20, 2024
doing well
edema in arm improved
pain improved
Objective Data
-
Vital Signs
Temp Pulse Resp BP Pulse Ox
98.0 F 83 18 124/86 94
06/20/24 07:00 06/20/24 08:36 06/20/24 07:00 06/20/24 08:36 06/20/24 07:00
Intake and Output
06/19/24 06/20/24 06/21/24
06:59 06:59 06:59
Intake Total 180 / 180 960 / 960
Balance 180 / 180 960 / 960
Intake:
Oral fluids 180 / 180 960 / 960
Other:
Number of approximated MODERATE 1 2
amounts of urine
Lab Results
06/20/24 09:59
06/19/24 10:28
Calcium 9.3 mg/dl (8.4-10.2) 06/19/24 10:28
Total Bilirubin 0.9 mg/dl (0.2-1.3) 06/18/24 17:21
AST 30 U/L (17-59) 06/18/24 17:21
ALT 21 U/L (0-50) 06/18/24 17:21
Alkaline Phosphatase 81 U/L (38-126) 06/18/24 17:21
Total Protein 6.3 g/dl (6.3-8.2) 06/18/24 17:21
Albumin 4.0 g/dl (3.5-5.0) 06/18/24 17:21
Physical Exam
-
decreased edema in arm
+ radial pulse
nba rewrapped
== END 2024-06-20 11:50 | disposition home or self-care (01) | DRG 300 ==
LOC: 4 WEST ACU 20:12
PROVIDERS: Clinical Nurse Specialist Family Health; Nurse Practitioner; ADMITTING PHYSICIAN Hospitalist; ATTENDING PHYSICIAN Hospitalist; CONSULT PHYSICIAN Internal Medicine Hematology & Oncology; CONSULT PHYSICIAN Surgery; EMERGENCY PHYSICIAN Emergency Medicine; FAMILY PHYSICIAN Internal Medicine
DX: I82.622 Acute embolism and thrombosis of deep veins of left upper extremity (principal); I50.22 Chronic systolic (congestive) heart failure; I11.0 Hypertensive heart disease with heart failure
CPT/HCPCS: 80048; 80053; 83605; 85025; 85027; 85610; 85730; 86850; 86900; 86901; 93005; 93971; 96365; 96366; 99285

== ENCOUNTER → 2024-06-30 09:57 | Outpatient (REF) | payer MEDICARE, OTHER, SELFPAY | LOC: HWRAD 09:57 | PROVIDERS: ATTENDING PHYSICIAN Internal Medicine | DX: R10.824 Left lower quadrant rebound abdominal tenderness (principal) | CPT/HCPCS: 74177; Q9967 ==

== ENCOUNTER → 2024-07-13 11:19 | Outpatient (REF) | payer MEDICARE, OTHER, SELFPAY ==
[2024-07-13 13:05] LABS: INR 1.02; PT 13.7 Sec (11.4-14.6)
[2024-07-13 13:08] LABS: % Basophils 0.7 % (0-2); % Eosinophils 1.2 % (0-6); % Immature Granulocytes 0.4 % (0-0.5); % Lymphocytes 17.5 % (20.5-51.1); % Monocytes 10.1 % (1.7-9.3); % Neutrophils 70.1 % (42.2-75.2); Absolute Eosinophils 0.1 10^3/uL (0-0.7); Absolute Monocytes 0.6 10^3/uL (0.1-0.6); Hematocrit 44.6 % (39.0-52.0); Hemoglobin 15.1 g/dL (13.0-18.0); Mean Corp Hgb Conc. 33.9 g/dL (33.0-37.0); Mean Corpuscular Hgb 33.2 pg (27.0-31.0); Mean Platelet Volume 10.5 fL (7.4-10.4); Nucleated Red Blood Cells % 0 % (-); Platelet Count 164 10^3/uL (130-400); Red Blood Cell Count 4.55 10^6/uL (4.70-6.10); Red Cell Dist. Width 13.7 % (11.5-14.5); White Blood Cell Count 5.7 10^3/uL (4.8-10.8)
[2024-07-13 13:18] LABS: GGTP 32 U/L (15-73)
== END ==
LOC: EMG 11:19
PROVIDERS: ATTENDING PHYSICIAN Orthopaedic Surgery; FAMILY PHYSICIAN Internal Medicine
DX: M17.11 Unilateral primary osteoarthritis, right knee (principal); M21.371 Foot drop, right foot; D69.6 Thrombocytopenia, unspecified; I82.622 Acute embolism and thrombosis of deep veins of left upper extremity; R20.0 Anesthesia of skin
CPT/HCPCS: 36415; 82977; 85025; 85610; 95886; 95911

== ENCOUNTER → 2024-09-21 07:51 | Outpatient (REF) | payer MEDICARE, OTHER, SELFPAY ==
[2024-09-21 09:49] LABS: D-Dimer 1.52 ug/mlFEU (0.00-0.50)
[2024-09-22 18:43] LABS: Protein S Total Antigen 123 % (84-134)
[2024-09-23 00:29] LABS: Anti-Thrombin III Activity 66 % (76-128)
[2024-09-23 00:33] LABS: Beta-2-Glycoprotein I Ab. IgG <10 SGU (<=20); Beta-2-Glycoprotein I Ab. IgM <10 SMU (<=20)
[2024-09-23 13:19] LABS: Cardiolipin IgA Antibody <10 APL (<=11); Cardiolipin IgM Antibody <10 MPL (<=12); Cardiolipin Igg Antibody <10 GPL (<=14)
[2024-09-23 23:01] LABS: Anti-Xa Qualitative Interp Not Performed (Not Present); Anticoagulant Med Neutralizati Not Performed (Not Performed); Hexagonal Phospholipid Confirm Not Performed s (<=7.9); Neutralized PTT-LA Ratio Not Performed (<=1.20); Neutralized dRVTT Screen Ratio Not Performed (<=1.20); PTT-LA Ratio 0.92 (<=1.20); Prothrombin Time 12.5 s (12.0-15.5); Thrombin Time Not Performed s (<=19.5); dRVTT 1.1 Mix Ratio Not Performed (<=1.20); dRVTT Confirmation Ratio Not Performed (<=1.20); dRVTT Screen Ratio 0.89 (<=1.20)
== END ==
LOC: HWLAB 07:51
PROVIDERS: ATTENDING PHYSICIAN Internal Medicine Hematology & Oncology; FAMILY PHYSICIAN Internal Medicine
DX: R73.01 Impaired fasting glucose (principal); M10.9 Gout, unspecified; K21.9 Gastro-esophageal reflux disease without esophagitis; I10 Essential (primary) hypertension; E78.2 Mixed hyperlipidemia; I50.20 Unspecified systolic (congestive) heart failure; I82.890 Acute embolism and thrombosis of other specified veins
CPT/HCPCS: 36415; 81240; 81241; 85300; 85305; 85379; 85610; 85613; 85730; 86146; 86147

== ENCOUNTER → 2024-10-01 10:25 | Outpatient (REF) | payer MEDICARE, OTHER, SELFPAY | LOC: MRI 10:25 | PROVIDERS: ATTENDING PHYSICIAN Orthopaedic Surgery; FAMILY PHYSICIAN Internal Medicine | DX: G57.31 Lesion of lateral popliteal nerve, right lower limb (principal) | CPT/HCPCS: 71046; 73718 ==

== ENCOUNTER → 2024-11-03 11:20 | Outpatient (REF) | payer MEDICARE, OTHER, SELFPAY ==
[2024-11-04 13:23] LABS: Rubeola (Measles) IgG Positive
== END ==
LOC: HWLAB 11:20
PROVIDERS: ATTENDING PHYSICIAN Internal Medicine
DX: Z01.84 Encounter for antibody response examination (principal)
CPT/HCPCS: 36415; 86765

== ENCOUNTER → 2024-12-01 06:47 | Outpatient (REF) | payer MEDICARE, OTHER, SELFPAY ==
[2024-12-01 08:10] LABS: Creatine Phosphokinase 85 U/L (55-170); Magnesium 1.9 mg/dl (1.6-2.3)
[2024-12-01 09:26] LABS: Folate > 20.0 ng/ml (2.76-20); Vitamin B12 585 pg/ml (239-931)
[2024-12-01 09:35] LABS: Erythrocyte Sed Rate 7 mm/hour (0-20)
[2024-12-01 15:25] LABS: Lyme Antibody Screen, EIA Negative (Negative)
[2024-12-02 14:24] LABS: Aldolase 4.1 U/L (1.2-7.6)
[2024-12-03 02:06] LABS: ANA, IgG Reflex to HEp-2 None Detected (None Detected)
[2024-12-03 02:53] LABS: SSA 52 (Ro)(ENA) Ab, IgG 7 AU/mL (0-40); SSA 60 (Ro)(ENA) Ab, IgG 8 AU/mL (0-40); SSB (La)(ENA) Ab, IgG 0 AU/mL (0-40)
[2024-12-04 00:15] LABS: Albumin 4.14 g/dL (3.75-5.01); Alpha 1 Globulin 0.26 g/dL (0.19-0.46); Alpha 2 Globulin 0.71 g/dL (0.48-1.05); SPEP IFE Reflex Not Done; Total Protein-Electrophoresis 6.6 g/dL (6.3-8.2)
== END ==
LOC: REG 06:47
PROVIDERS: ATTENDING PHYSICIAN Nurse Practitioner; FAMILY PHYSICIAN Internal Medicine
DX: R20.0 Anesthesia of skin (principal); M21.379 Foot drop, unspecified foot; I82.622 Acute embolism and thrombosis of deep veins of left upper extremity
CPT/HCPCS: 36415; 82085; 82550; 82607; 82746; 83735; 84155; 84165; 84207; 84425; 85652; 86038; 86140; 86235; 86618

== ENCOUNTER → 2025-04-25 06:58 | Outpatient (REF) | payer MEDICARE, OTHER, SELFPAY ==
[2025-04-25 08:11] LABS: ALT (SGPT) 56 U/L (0-50); AST (SGOT) 52 U/L (17-59); Very Low Density Lipoprotein 11 mg/dl (0-30)
[2025-04-25 08:31] LABS: HDL Cholesterol 136 mg/dl; LDL Cholesterol, Calculated 54 mg/dl
== END ==
LOC: REG 06:58
PROVIDERS: ATTENDING PHYSICIAN Psychiatry & Neurology Neurology; FAMILY PHYSICIAN Internal Medicine; OTHER PHYSICIAN Nurse Practitioner
DX: E67.2 Megavitamin-B6 syndrome (principal); E78.2 Mixed hyperlipidemia; E78.00 Pure hypercholesterolemia, unspecified; I42.0 Dilated cardiomyopathy
CPT/HCPCS: 36415; 80061; 84207; 84450; 84460

== ENCOUNTER → 2025-06-14 08:32 | Outpatient (REF) | payer MEDICARE, OTHER, SELFPAY ==
[2025-06-14 10:29] LABS: Blood Urea Nitrogen 21 mg/dl (9-20); Calcium 9.2 mg/dl (8.4-10.2); Carbon Dioxide 26 mmol/L (22-30); Chloride 105 mmol/L (98-107); Glucose 116 mg/dl (70-99); Potassium 4.2 mmol/L (3.5-5.1); Sodium 137 mmol/L (135-145); eGFR > 60.00
== END ==
LOC: HWLAB 08:32
PROVIDERS: ATTENDING PHYSICIAN Internal Medicine Cardiovascular Disease; FAMILY PHYSICIAN Internal Medicine
DX: I50.20 Unspecified systolic (congestive) heart failure (principal)
CPT/HCPCS: 36415; 80048

== ENCOUNTER → 2025-06-24 07:14 | Outpatient (REF) | payer MEDICARE, OTHER, SELFPAY | LOC: HWRCS 07:14 | PROVIDERS: ATTENDING PHYSICIAN Internal Medicine Cardiovascular Disease; FAMILY PHYSICIAN Internal Medicine | DX: R22.41 Localized swelling, mass and lump, right lower limb (principal) | CPT/HCPCS: 93005; 93306 ==